=== PATIENT | male | born 1930 | race Caucasian/White ===

== ENCOUNTER → 2016-08-02 | Outpatient (CLI) | payer MEDICARE, BC ==
[~2016-08-02] MED LIST: ASPI325T PO; CITA10TA7 PO; DONE10TA30 PO; DUTA0.5C2 PO; FLUD0.1T PO; IBUP-1724 PO; LORA0.5T2 PO; MELA5TAB14 PO; MEMA10TA21 PO; POLY15DR57 BOTH EYES; POTA-81 PO; TAMS0.4C47 PO; TRAM50TA4 PO; [UNRECOGNIZED DRUG - CODE] PO; [UNRECOGNIZED DRUG - CODE] TOP
[2016-08-02 07:24] LABS: ALBUMIN 4.1 G/DL (3.5-5.0); ALBUMIN/GLOBULIN RATIO 1.3 RATIO (1.1-2.2); ALKALINE PHOSPHATASE 91 U/L (38-126); ALT (SGPT) 32 U/L (21-72); AST (SGOT) 59 U/L (17-59); TOTAL PROTEIN 7.3 G/DL (6.3-8.2)
[2016-08-03 00:41] LABS: LDL CHOLESTEROL,CALCULATED 116.8 (66-159); RISK FACTOR 3.9 RATIO (0-5.0); VLDL CHOLESTEROL 25.2 MG/DL (0-28)
== END ==
LOC: LABNH.AP 02:22
PROVIDERS: ATTEND Family Medicine
DX: E78.00 Pure hypercholesterolemia, unspecified (principal); Z79.899 Other long term (current) drug therapy
CPT/HCPCS: 36415; 80061; 80076; P9604

== ENCOUNTER 2016-09-28 23:12 | Emergency (ER) | payer MEDICARE, BC ==
[~2016-09-28] VITALS: Ht 177.8 cm; Wt 83.0 kg
[2016-09-28 23:12] VITALS: Ht 177.8 cm; Wt 83.0 kg
--- OUTSIDE RECORDS SUMMARY | 2016-09-28 23:18 | XMS REPORT | Continuity of Care Document ---
Author Author [facility] Organization [facility] Address Unknown Phone Unavailable Allergies Active Description Code Type Severity Reaction Onset Reported/Identified Relationship to Patient Clinical Status Yes No Known Medication Allergies NKMA N/A N/A 08/31/2014 Yes iodine iodine Drug Allergy Unknown RASH-UNKNOWN 09/01/2015 Medications Problems Procedures Results Test Result Range METABOLIC PANEL, BASIC - 08/06/15 06:09 POTASSIUM 4.1 mmol/L 3.5-5.3 EST GFR (MDRD) > 60 mL/min > 59 ANION GAP 9 mmol/L 5-15 GLUCOSE 166 mg/dL 70-99 CALCIUM 8.8 mg/dL 8.5-10.1 BLOOD UREA NITROGEN 15 mg/dL 7-20 CREATININE 1.1 mg/dL 0.7-1.3 SODIUM 140 mmol/L 135-148 CHLORIDE 106 mmol/L 98-110 CARBON DIOXIDE 25 mmol/L 21-32 CBC W/DIFF - 08/06/15 06:09 COMMENT REVIEWED GRANULOCYTE # 9.6 k/cumm 2.0-9.0 GRANULOCYTE % 91 % 50-75 LYMPHOCYTE # 0.6 k/cumm 1.0-4.0 LYMPHOCYTE % 5 % 20-30 MEAN CELL HGB 32.0 pg 27.0-33.0 MEAN CELL HGB CONCENTRATION 34.0 g/dL 32.0-37.0 MEAN CELL VOLUME 93.9 fl 80.0-100.0 MONOCYTE # 0.4 k/cumm 0.1-1.0 MONOCYTE % 3 % 4-6 RED BLOOD CELL 4.10 m/cumm 4.00-6.00 RED CELL DISTRIBUTION WIDTH 12.1 % 11.0- 15.6 WHITE BLOOD CELL 10.5 k/cumm 5.0-10.0 HEMOGLOBIN 13.1 gm/dL 14.0-18.0 HEMATOCRIT 38.5 % 40.0-54.0 PLATELET COUNT 206 k/cumm 150-450 CBC - 09/01/15 09:12 MEAN CELL HGB 31.9 pg 27.0-33.0 MEAN CELL HGB CONCENTRATION 33.1 g/dL 32.0-37.0 MEAN CELL VOLUME 96.2 fl 80.0-100.0 RED BLOOD CELL 3.73 m/cumm 4.00-6.00 RED CELL DISTRIBUTION WIDTH 12.5 % 11.0- 15.6 WHITE BLOOD CELL 5.8 k/cumm 5.0-10.0 HEMOGLOBIN 11.9 gm/dL 14.0-18.0 HEMATOCRIT 35.9 % 40.0-54.0 PLATELET COUNT 177 k/cumm 150-450 TROPONIN I - 09/01/15 09:12 TROPONIN I < 0.02 ng/mL < 0.07 METABOLIC PANEL, COMPREHN - 09/01/15 09:12 POTASSIUM 3.6 mmol/L 3.5-5.3 EST GFR (MDRD) > 60 mL/min > 59 ANION GAP 6 mmol/L 5-15 EST CrCl (CG) 55 mL/min > 59 GLUCOSE 98 mg/dL 70-99 CALCIUM 8.2 mg/dL 8.5-10.1 BLOOD UREA NITROGEN 13 mg/dL 7-20 CREATININE 1.1 mg/dL 0.7-1.3 SODIUM 144 mmol/L 135-148 CHLORIDE 109 mmol/L 98-110 AST/SGOT 16 Units/L 10-37 ALT/SGPT 20 Units/L < 66 CARBON DIOXIDE 29 mmol/L 21-32 TOTAL PROTEIN 5.7 gm/dL 6.4-8.2 ALBUMIN 2.9 gm/dL 3.4-5.0 BILI TOTAL 0.4 mg/dL 0.0-1.0 ALKALINE PHOSPHATASE TOTAL 75 IU/L 45- 117 Encounters ACCT No. Visit Date/Time Discharge Status Pt. Type Provider Facility Loc./Unit Complaint [id number] 04/26/2016 10:32:00 2015 23:59:00 DIS Outpatient Yu Benites [facility] ER ON 04.23.16 FOR FALL HIT BACK OF HEAD AN [id number] 03/22/2016 09:07:00 2015 23:59:00 DIS Outpatient Yu Benites [facility] MED CHECK [id number] 01/21/2016 14:56:00 2015 23:59:00 DIS Outpatient Oskar Vo [facility] med check [id number] 07/08/2015 14:02:00 2015 23:59:00 DIS Outpatient Oskar Vo [facility] med ck [id number] 12/18/2014 08:57:00 2014 23:59:00 DIS Outpatient Oskar Vo [facility] ER LUIS CHEST PAIN AND ELEVATED PULSE
--- OUTSIDE RECORDS SUMMARY | 2016-09-28 23:18 | XMS REPORT | Referral Summary ---
Author Author [facility] Organization [facility] Address Unknown Phone Unavailable Care Team Providers Care Deputy Clerk Of Court Name Role Phone Guera Vo Primary Care Physician [phone] Encounter Date(s): 03/22/16 - 03/22/16 [facility] [address] [place] [id number] Discharge Diagnosis: Dementia in other diseases classified elsewhere without behavioral disturbance Discharge Diagnosis: Benign prostatic hypertrophy Discharge Diagnosis: H/O supraventricular tachycardia Discharge Diagnosis: Hypokalemia 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 Discharge Diagnosis: Actinic keratosis Discharge Diagnosis: Seborrheic keratosis Discharge Disposition: 01-Home or Self Care Attending Physician: Yu Benites APRN Admitting Physician: Yu Benites APRN Vital Signs Most recent to 1 oldest [Reference Range]: Temperature Tympanic 36.9 degC [36.6-38.1 degC] (03/22/16 9:15 AM) Peripheral Pulse 68 bpm Rate [60-100 bpm] (03/22/16 9:15 AM) Blood Pressure 126/82 mmHg [90-140/60-90 mmHg] (03/22/16 9:15 AM) Problem List Condition Effective Dates Status Health Status Informant 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(Confirme d) H/O supraventricular Active tachycardia(Confirme d) Benign prostatic Active hypertrophy(Confirme d) 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) Allergies, Adverse Reactions, Alerts No Known Medication Allergies Medications Artificial Tears Eye-Both, 0 Refill(s) Start Date: 03/22/16 Status: Ordered aspirin 81 mg oral tablet 1 tabs, Oral, Daily, 0 Refill(s) Start Date: 11/12/13 Status: Ordered Ativan 0.5 mg oral tablet 0.5 mg 1 tabs, Oral, q8hr, julian, # 90 tabs, 2 Refill(s) Start Date: 08/10/15 Stop Date: 08/18/16 Status: Ordered Avodart 0.5 mg oral capsule 1 caps, Oral, Daily, 0 Refill(s) Start Date: 11/12/13 Status: Ordered citalopram 10 mg, Oral, Daily, 0 Refill(s) Start Date: 12/18/14 Status: Ordered donepezil 10 mg oral tablet 10 mg 1 tabs, Oral, Bedtime (once a day), 0 Refill(s) Start Date: 08/10/15 Status: Ordered Flomax 0.4 mg oral capsule 1 caps, Oral, Daily, 0 Refill(s) Start Date: 11/12/13 Status: Ordered fludrocortisone 0.1 mg oral tablet 0.1 mg, Oral, Daily, recommended by Dr Hart, # 30 tabs, 2 Refill(s), Pharmacy : [facility], 0.1 mg Oral Daily,Instr:recommended by Dr Hart Start Date: 12/14/15 Stop Date: 12/13/16 Status: Ordered LORazepam 0.5 mg oral tablet 0.5 mg 1 tabs, Oral, Bedtime (once a day), [facility], # 30 tabs, 0 Refill (s) Start Date: 08/10/15 Stop Date: 08/18/16 Status: Ordered melatonin 5 mg oral tablet 5 mg 1 tabs, Oral, Bedtime (once a day), as needed for insomnia, # 60 tabs, 0 Refill(s) Start Date: 03/22/16 Status: Ordered memantine 10 mg oral tablet 10 mg 1 tabs, Oral, BID, 0 Refill(s) Start Date: 08/10/15 Status: Ordered menthol topical stick 1 [place], Topical, QID, 0 Refill(s) Start Date: 08/10/15 Status: Ordered Mucinex D 60 mg-600 mg oral tablet, extended release 1 tabs, Oral, BID, julian ph, # 60 tabs, 0 Refill(s) Start Date: 03/07/16 Stop Date: 03/07/17 Status: Ordered potassium chloride 20 mEq oral tablet, extended release 20 mEq 1 tabs, Oral, BID, # 180 tabs, 0 Refill(s) Start Date: 01/21/16 Status: Ordered traMADol 50 mg oral tablet 50 mg 1 tabs, Oral, BID, julian ., # 60 tabs, 0 Refill(s) Start Date: 01/11/16 Status: Ordered Ultram 50 mg oral tablet 50 mg 1 tabs, Oral, q6hr, as needed for pain, FA TO [facility] [phone]., # 90 tabs, 0 Refill(s) Start Date: 08/13/15 Status: Ordered Results No data available for this section Immunizations Vaccine Date Refusal Reason influenza virus vaccine, inactivated1 03/06/16 influenza virus vaccine, inactivated 02/26/15 1Result Comment: [03/07/2016] shari maxwell Procedures Procedure Date Related Diagnosis Body Site Destruction (eg, laser surgery, 03/22/16 electrosurgery, cryosurgery, chemosurgery, surgical curettement), premalignant lesions (eg, actinic keratoses); first lesion Destruction (eg, laser surgery, 03/22/16 electrosurgery, cryosurgery, chemosurgery, surgical curettement), premalignant lesions (eg, actinic keratoses); second through 14 lesions, each (List separately in addition to code for first lesion) Hernia repair Vasectomy Social History Social History Type Response Smoking Status Former smoker; Type: Cigarettes; Number of years: 44 Assessment and Plan Extracted from: Title: Office Visit Note-med Author: Yu Benites APRN Date: 03/22/16 check/insomnia Assessment/Plan 1.Dementia in other diseases classified elsewhere without behavioral disturbance Continue same medications. Stable. Receiving appropriate assistance with cares. 2.Benign prostatic hypertrophy Relatively well controlled without obstruction issues. Continue Flomax and Avodart. 3.Insomnia due to medical condition We discussed patient's current sleep pattern anduse of lorazepam. As patient is having no adverse effects from the lorazepamor Celexarecommend continuing these. Adding melatonin5 mg at at bedtime to see if that will improve his overall sleep quality at night. Encouraged less sleepingduring the day. Considered adding medication to help withnocturiabut at this time they're not interested in that. Only getting up once a night to urinate. Encourage family to call and give us an update on how he is doingsleep in a few weeks. 4.H/O supraventricular tachycardia With bradycardia and pacemaker placement. Follow-up with Dr. Hart as recommended. 5.Hypokalemia On replacement. Plan to check chemistry andCBCfor history of mild anemia at office visit in 2 months. 6.Actinic keratosis Pathophysiology of actinic keratosis and seborrheic keratosisreviewed. Discussed cryotherapy as a treatment option. Patient / wifeagreeable. Verbal consent is obtained. Risk and benefits reviewed. Cryotherapy utilized in 3 freeze thaw cycles to4 lesions. Post-cryotherapy care discussed. Call with any problems. 7.Seborrheic keratosis As above. Plan follow-up in 2 months or sooner if medical needs arise.
--- OUTSIDE RECORDS SUMMARY | 2016-09-28 23:18 | XMS REPORT | Continuity of Care Document ---
Author Author [facility] Address Unknown Phone Unavailable Support Name Relationship Address Phone NANCIE GAINES MD Caregiver [address] [place] [address] Unavailable NANCIE GAINES MD Caregiver [address] [place] [address] Unavailable SANDEE SCHNEIDER MD Caregiver [address] [place] [address] Unavailable SILVESTRE THOMAS MD Caregiver [address] [place] [address] Unavailable ASIA HARDY Next Of Kin [address] [place] [address] Insurance Providers Guarantor Rinku Hardy Address [address] [place] [address] AP Email DENIED 16 Payer [facility] Policy Number [id number] Subscriber's Name AntonyRinku Lagos Relationship 18 Self Group Number [id number] Payer Medicare Policy Number [id number] Subscriber's Name Rinku Hardy Relationship 18 Self Advance Directives Directive Response Recorded Date/Time Advanced Directives Type DNR Documentation 06/15/16 8:41am Ordered Resuscitation Status Do Not Resuscitate 06/15/16 10:44am Resuscitation Documents on File Yes 06/15/16 11:12am DPOA for Healthcare Only Roselia jung 06/15/16 11:12am Living Will Yes 06/15/16 11:12am Problems Active Problems Medical Problem Onset Date Status Alzheimer's dementia Unknown Chronic Anxiety Unknown Chronic Atrial flutter Unknown Chronic BPH (benign prostatic hypertrophy) Unknown Chronic COPD (chronic obstructive pulmonary disease) Unknown Chronic Chest pain Unknown Resolved Degenerative joint disease Unknown Chronic Dysarthria Unknown Acute Dyslipidemia Unknown Chronic Encephalopathy Unknown HTN (hypertension) Unknown Chronic History of paroxysmal supraventricular tachycardia Unknown Resolved Hypokalemia Unknown Acute Hypotension Unknown Resolved Lung cancer Unknown Pacemaker Unknown Chronic Right lower quadrant abdominal pain Unknown Acute Right lower quadrant abdominal pain Unknown Acute SVT (supraventricular tachycardia) Unknown Acute Sepsis Unknown Acute Severe sepsis Unknown Resolved Tachy-lio syndrome Unknown Acute Vasovagal episode Unknown Acute Past Problems Medical Problem Onset Date Mental status change Unknown Medications Current Home Medications Medication Dose Units Route Directions Days Qty Instructions Start Date Aspirin 325 Mg Tablet 325 Mg Oral Daily for Cva 30 Tablet 06/16/16 Citalopram Hydrobromide (Citalopram Hbr) 10 Mg Tablet 10 Mg Oral Daily 12/09/14 Donepezil Hcl 10 Mg Tablet 10 Mg Oral Bedtime 09/14/15 Dutasteride (Avodart) 0.5 Mg Capsule 0.5 Mg Oral Daily 12/09/14 Fludrocortisone Acetate 0.1 Mg Tablet 0.1 Mg Oral Bedtime Guaifenesin/P-Ephed Hcl (Mucinex D Er 600-60 Mg Tablet) 1 Tab Tablet 1 Tab Oral Every 12 Hours as needed for Cold Symptoms 06/15/16 Ibuprofen 200 Mg Tablet 200 Mg Oral Twice A Day 06/15/16 Lorazepam 0.5 Mg Tablet 0.5 Mg Oral Every 8 Hours as needed for Anxiety 08/04/15 Lorazepam 0.5 Mg Tablet 0.5 Mg Oral Bedtime 09/14/15 Melatonin 5 Mg Tablet 5 Mg Oral Bedtime 06/15/16 Memantine Hcl 10 Mg Tablet 10 Mg Oral Twice A Day 08/04/15 Menthol 227 Gm Gel..gram. 1 Applic Topically Daily 06/15/16 Menthol 227 Gm Gel..gram. 1 Applic Topically Three Times A Day as needed for Pain 06/15/16 Polyvinyl Alcohol (Artificial Tears) 15 Ml Drops 1 Drop Both Eyes As Needed as needed for Dry Eyes 06/15/16 Potassium Chloride 20 Meq Tablet.er 20 Meq Oral Twice Daily With Meals 05/04/16 Tamsulosin Hcl 0.4 Mg Cap.er.24h 0.4 Mg Oral Bedtime 12/09/14 Tramadol Hcl 50 Mg Tablet 50 Mg Oral Twice A Day 08/04/15 Tramadol Hcl 50 Mg Tablet 50 Mg Oral Every 6 Hours as needed for Pain 08/04/15 Past Home Medications Medication Directions Ordered Status Aspirin (Aspirin Ec) 81 Mg Tablet.dr, 81 Mg Oral Daily 09/14/15 Discontinued Donepezil Hcl 10 Mg Tablet, 10 Mg Oral Daily 08/04/15 Discontinued Metoprolol Succinate 25 Mg Tab.er.24h, 25 Mg Oral Daily 08/04/15 Discontinued Social History Social History Problem Response Recorded Date/Time Onset Date Status Reason for Hospitalization dysarthria 06/16/2016 1:51pm Not Applicable Not Applicable Has the pt used tobacco in the last 12 months No 06/15/2016 11:17am Not Applicable Not Applicable Tobacco Usage none 08/04/2015 1:42pm Not Applicable Not Applicable Query Response Start Date Stop Date Smoking Status Never smoker Hospital Discharge Instructions Instructions: Care Instructions: I was in the hospital because (patient own words): "I HAD A STROKE" Discharge Diet: ground meats with nectar thickened liquids Discharge Activity: Ambulate with assistance only, front wheeled walker recommended Follow Up Appointments: Dr. Thomas 1 week Pending Lab / Results: No Pending Lab Patient Instructions: Increase aspirin from baby aspirin to full strength aspirin 1 daily Expected Signs/Symptoms: Increased confusion from baseline, anticipate gradual improvement as he acclimates to new environment. Stumbling over words. Notify Physician If: Obvious weakness in 1 arm or leg, choking or vomiting During Business Hours:: Please call the physician's office at After Business Hours:: Please call [phone] and have the welding machine operator electroslag page the physician. Pain Management/Treatment: See medication list Wound/Incision Care: Not applicable Durable Medical Equipment: Walker recommended Condition at time of discharge: Fair Plan of Care Discharge Date 06/16/16 4:09pm Disposition 04 TO [facility] Instructions/Education Provided Hypokalemia (ED) Prescriptions See Medication Section Care Plan and Goals See Discharge Instructions Section Functional Status Query Response Date Recorded Mobility Status Ambulatory w/assist June 15, 2016 11:21am Assistive Devices None June 15, 2016 11:21am Activity Limitations Weakness Cough June 15, 2016 11:21am Feeding Ability Assist June 15, 2016 11:21am Toileting Ability Assist June 15, 2016 11:21am Grooming Ability Assist June 15, 2016 11:21am Dressing Ability Assist June 15, 2016 11:21am Driving Ability Dependent June 15, 2016 11:21am Housework Ability Dependent June 15, 2016 11:21am Meal Preparation Ability Dependent June 15, 2016 11:21am Stair Climbing Ability Dependent June 15, 2016 11:21am Ability to complete ADL's impeded by Impaired Mobility Change in Cognition June 15, 2016 11:21am Cognitive/Perceptual Impairments Impaired vision Impaired hearing June 15, 2016 11:21am Visual Assistive Devices Glasses With patient June 15, 2016 11:21am Allergies, Adverse Reactions, Alerts Allergen Type Severity Reaction Status Last Updated iodine Allergy Unknown Active 06/15/16 Immunizations Immunization Event Date Type Not Given Reason Dose Number Lot Number Floor Hand VIS Given Pneumococcal conjugate PCV 13 06/15/16 Administered 1 [id number] Pfizer Query Response on File Recorded Date/Time Hx Influenza Vaccination Y FEB 2016 06/15/16 11:17am Hx Pneumococcal Vaccination Y feb 2015 06/15/16 11:17am Hx Influenza Vaccination Y FEB 2016 06/15/16 11:17am Influenza Vaccine Hx 03/06/2016 06/15/16 3:11pm Vital Signs Acute Vital Signs Vital Response Date/Time Temperature (Fahrenheit) 96.2 deg F (96.8 - 99.1) 06/16/2016 8:15am Temperature (Calculated Celsius) 35.83852 degrees C (36.0 - 37.3) 06/16/2016 8:15am Temperature Source Oral 05/04/2016 12:15pm Pulse Rate (adult) 70 bpm (60 - 100) 06/16/2016 2:43pm Respiratory Rate 18 breaths/min (10 - 20) 06/16/2016 2:43pm O2 Sat by Pulse Oximetry 96 % (90 - 100) 06/16/2016 2:43pm Oxygen Delivery Method Room Air 05/04/2016 3:15pm Oxygen Delivery Method Room Air 06/16/2016 2:43pm Blood Pressure 166/83 mm Hg 06/16/2016 2:43pm Blood Pressure Source Automatic Cuff 06/16/2016 2:43pm Height (Feet) 6 feet 06/15/2016 11:11am Height (Inches) 1.00 inches 06/15/2016 11:11am Weight (Kilograms) 77.400 kg 06/15/2016 11:11am Body Mass Index (BMI) 22.5 06/15/2016 11:11am Results Laboratory Results Test Name Result Units Flags Reference Collection Date/Time Result Date/ Time Comments White Blood Count 6.8 T/MM3 4.5-11.0 06/15/2016 9:06am 06/15/2016 9: 11am Red Blood Count 4.34 M/MM3 L 4.50-5.90 06/15/2016 9:06am 06/15/2016 9: 11am Hemoglobin 13.5 GM/DL 13.5-17.5 06/15/2016 9:06/15/2016 9:11am Hematocrit 40.3 % L 41-53 06/15/2016 9:06/15/2016 9:11am Mean Corpuscular Volume 92.9 UM3 80-100 06/15/2016 9:06/15/2016 9: 11am Mean Corpuscular Hemoglobin 31.1 UUG 26-34 06/15/2016 9:2016 9:11am Mean Corpuscular Hemoglobin Concent 33.5 GM/DL 31-37 06/15/2016 9:06/15/2016 9:11am RDW Standard Deviation 43.5 FL 36.9-50.2 06/15/2016 9:06/15/2016 9 :11am Platelet Count 186 T/MM3 130-400 06/15/2016 9:06/15/2016 9:11am Mean Platelet Volume 9.1 UM3 L 9.4-12.4 06/15/2016 9:06/15/2016 9: 11am Neutrophils (%) (Auto) 74.6 % H 33-66 06/15/2016 9:06/15/2016 9: 11am Lymphocytes (%) (Auto) 12.8 % L 23-45 06/15/2016 9:06/15/2016 9: 11am Monocytes (%) (Auto) 7.1 % 0-9.0 06/15/2016 9:06/15/2016 9:11am Eosinophils (%) (Auto) 4.4 % H 0-4 06/15/2016 9:06/15/2016 9:11am Basophils (%) (Auto) 1.0 % 0-2 06/15/2016 9:06/15/2016 9:11am Immature Granulocyte % (Auto) 0.1 % 0.0-0.5 06/15/2016 9:2016 9:11am Absolute Neutrophils (auto) 5.1 T/MM3 1.8-7.7 06/15/2016 9:2016 9:11am Absolute Lymphocytes (auto) 0.9 T/MM3 L 1-4.8 06/15/2016 9:062016 9:11am Absolute Monocytes (auto) 0.5 T/MM3 0-0.8 06/15/2016 9:06/15/2016 9:11am Absolute Eosinophils (auto) 0.3 T/MM3 0-0.5 06/15/2016 9:062016 9:11am Absolute Basophils (auto) 0.1 T/MM3 0-0.2 06/15/2016 9:06/15/2016 9:11am Absolute Immature Granulocyte (auto 0.01 T/MM3 0.00-0.03 06/15/2016 9: 06/15/2016 9:11am Prothromb Time International Ratio 1.15 H 0.76-1.04 06/15/2016 9:06/15/2016 9:18am THERAPUTIC RANGE=2.00-3.00 FOR ANTI-THROMBOSIS THERAPUTIC RANGE=2.50-3.50 FOR IMPLANTED VALVE Activated Partial Thromboplast Time 35.0 SEC 24-36 06/15/2016 9: 9:18am Icterus Index < 2 0-7 06/15/2016 9:06/15/2016 9:20am Chemistry Specimen Hemolysis < 15 0-25 06/15/2016 9:06/15/2016 9 :20am 0-25: Specimen Exhibited No Hemolysis. Turbidity < 20 0-20 06/15/2016 9:06/15/2016 9:20am Sodium Level 142 MEQ/L 134-144 06/15/2016 9:06/15/2016 9:20am Potassium Level 3.3 MEQ/L L 3.6-5 06/15/2016 9:0606/15/2016 9:20am Chloride Level 104 MEQ/L 98-107 06/15/2016 9:0606/15/2016 9:20am Carbon Dioxide Level 29 MEQ/L 22-30 06/15/2016 9:0606/15/2016 9: 20am Anion Gap 9 MEQ/L 5-15 06/15/2016 9:0606/15/2016 9:20am Blood Urea Nitrogen 15.0 MG/DL 9-06/15/2016 9:06/15/2016 9: 20am Creatinine 0.9 MG/DL 0.8-1.5 06/15/2016 9:06/15/2016 9:20am BUN/Creatinine Ratio 17 RATIO 6-26 06/15/2016 9:06/15/2016 9:20am Glomerular Filtration Rate Calc 80 06/15/2016 9:06/15/2016 9: 20am Glucose Level 115 MG/DL H 75-110 06/15/2016 9:06/15/2016 9:20am Calculated Osmolality 275 MOSM/KG 261-280 06/15/2016 9:06/15/2016 9:20am Calcium Level 9.1 MG/DL 8.4-10.2 06/15/2016 9:06/15/2016 9:20am Total Bilirubin 0.70 MG/DL 0.20-1.30 06/15/2016 9:06/15/2016 9: 20am Alkaline Phosphatase 78 U/L 38-126 06/15/2016 9:06/15/2016 9:20am Total Protein 6.7 G/DL 6.3-8.2 06/15/2016 9:06/15/2016 9:20am Albumin 3.8 G/DL 3.5-5.0 06/15/2016 9:06/15/2016 9:20am Globulin 2.9 G/DL 2.4-3.6 06/15/2016 9:06/15/2016 9:20am Albumin/Globulin Ratio 1.3 RATIO 1.1-2.2 06/15/2016 9:06/15/2016 9 :20am Aspartate Amino Transf (AST/SGOT) 25 U/L 17-59 06/15/2016 9:2016 9:20am Alanine Aminotransferase (ALT/SGPT) 24 U/L 21-72 06/15/2016 9: 9:20am Troponin I < 0.012 ng/ml 0-0.12 06/15/2016 9:06/15/2016 9:32am Troponin values with a difference of 55% increase from orginal troponin value represent a true biological DELTA value. (%increase Calc=Orginal Troponin value, divided by subsequent Troponin value, multiplied by 100) Urine Collection Type VOIDED-NOT CC-MIDSTR 06/15/2016 10:48am 06/15 10:59am Urine Color YELLOW YELLOW 06/15/2016 10:48am 06/15/2016 10:59am Urine Turbidity CLEAR CLEAR 06/15/2016 10:48am 06/15/2016 10:59am Urine Specific [place] 1.020 1.015-1.025 06/15/2016 10:48am 2016 10:59am Urine pH 6.0 5.0-8.0 06/15/2016 10:48am 06/15/2016 10:59am Urine Leukocyte Esterase NEGATIVE NEGATIVE 06/15/2016 10:48am 2016 10:59am Urine Nitrite NEGATIVE NEGATIVE 06/15/2016 10:48am 06/15/2016 10: 59am Urine Protein NEGATIVE NEGATIVE 06/15/2016 10:48am 06/15/2016 10: 59am Urine Glucose (UA) NEGATIVE NEGATIVE 06/15/2016 10:48am 06/15/2016 10 :59am Urine Ketones NEGATIVE NEGATIVE 06/15/2016 10:48am 06/15/2016 10: 59am Urine Urobilinogen 0.2 EU/DL NORMAL 06/15/2016 10:48am 06/15/2016 10: 59am Urine Bilirubin NEGATIVE NEGATIVE 06/15/2016 10:48am 06/15/2016 10: 59am Urine Blood NEGATIVE NEGATIVE 06/15/2016 10:48am 06/15/2016 10:59am Urinalysis Comment MICROSCOPIC NOT IND. 06/15/2016 10:48am 2016 10:59am Glucometer 137 mg/dL H 75-110 06/15/2016 8:52am 06/15/2016 10:11am Name: RINKU HARDY Unit #: [id number] : 1930 Sex: M DISCHARGE SUMMARY Admit Date: 06/15/16 Report #: [id number] [facility] General Date Date DATE: 06/16/16 TIME: 15:07 Attending Physician Nancie Gaines MD Admitting Physician Nancie Gaines MD Consulting Physician Stacie Salazar Admitting Diagnosis ms changes, hypokalemia Discharge Diagnosis 1. Probable ischemic stroke 2. Dysarthria/dysphasia 3. Encephalopathy 4. Dementia 5. Hypokalemia 6. Dyslipidemia 7. Right lower lobe lung cancer 8. History SVT Laboratory Laboratory Tests Test 06/15/16 08:52 06/15/16 09:06 06/15/16 10:48 Glucometer 137mg/dL (75-110) White Blood Count 6.8T/MM3 (4.5-11.0) Red Blood Count 4.34M/MM3 (4.50-5.90) Hemoglobin 13.5GM/DL (13.5-17.5) Hematocrit 40.3% (41-53) Mean Corpuscular Volume 92.9UM3 (80-100) Mean Corpuscular Hemoglobin 31.1UUG (26-34) Mean Corpuscular Hemoglobin Concent 33.5GM/DL (31-37) RDW Standard Deviation 43.5FL (36.9-50.2) Platelet Count 186T/MM3 (130-400) Mean Platelet Volume 9.1UM3 (9.4-12.4) Immature Granulocyte % (Auto) 0.1% (0.0-0.5) Neutrophils (%) (Auto) 74.6% (33-66) Lymphocytes (%) (Auto) 12.8% (23-45) Monocytes (%) (Auto) 7.1% (0-9.0) Eosinophils (%) (Auto) 4.4% (0-4) Basophils (%) (Auto) 1.0% (0-2) Absolute Immature Granulocyte (auto 0.01T/MM3 (0.00-0.03) Absolute Neutrophils (auto) 5.1T/MM3 (1.8-7.7) Absolute Lymphocytes (auto) 0.9T/MM3 (1-4.8) Absolute Monocytes (auto) 0.5T/MM3 (0-0.8) Absolute Eosinophils (auto) 0.3T/MM3 (0-0.5) Absolute Basophils (auto) 0.1T/MM3 (0-0.2) Prothromb Time International Ratio 1.15 (0.76-1.04) Activated Partial Thromboplast Time 35.0SEC (24-36) Turbidity < 20 (0-20) Sodium Level 142MEQ/L (134-144) Potassium Level 3.3MEQ/L (3.6-5) Chloride Level 104MEQ/L (98-107) Carbon Dioxide Level 29MEQ/L (22-30) Anion Gap 9MEQ/L (5-15) Blood Urea Nitrogen 15.0MG/DL (9-20) Creatinine 0.9MG/DL (0.8-1.5) Glomerular Filtration Rate Calc 80 BUN/Creatinine Ratio 17RATIO (6-26) Glucose Level 115MG/DL (75-110) Calculated Osmolality 275MOSM/KG (261-280) Calcium Level 9.1MG/DL (8.4-10.2) Total Bilirubin 0.70MG/DL (0.20-1.30) Icterus Index < 2 (0-7) Aspartate Amino Transf (AST/SGOT) 25U/L (17-59) Alanine Aminotransferase (ALT/SGPT) 24U/L (21-72) Alkaline Phosphatase 78U/L (38-126) Troponin I < 0.012ng/ml (0-0.12) Total Protein 6.7G/DL (6.3-8.2) Albumin 3.8G/DL (3.5-5.0) Globulin 2.9G/DL (2.4-3.6) Albumin/Globulin Ratio 1.3RATIO (1.1-2.2) Chemistry Specimen Hemolysis < 15 (0-25) Urine Collection Type Voided-not cc-midstr Urine Color Yellow (YELLOW) Urine Turbidity Clear (CLEAR) Urine pH 6.0 (5.0-8.0) Urine Specific [place] 1.020 (1.015-1.025) Urine Protein Negative (NEGATIVE) Urine Glucose (UA) Negative (NEGATIVE) Urine Ketones Negative (NEGATIVE) Urine Blood Negative (NEGATIVE) Urine Nitrite Negative (NEGATIVE) Urine Bilirubin Negative (NEGATIVE) Urine Urobilinogen 0.2EU/DL (NORMAL) Urine Leukocyte Esterase Negative (NEGATIVE) Urinalysis Comment Microscopic not ind. Radiology Noncontrast CT of the head on admission revealed generalized atrophy and chronic microvascular ischemic changes without acute pathology. History of Present Illness Patient is an 85-year-old male who resides [facility]. It was reported by staff that last evening approximately 8 PM he was complaining of having a headache and some slurred speech. Patient went to bed and slept all night. This morning he was found to have difficulty walking/right- sided weakness as well as continued dysarthria. EMS was then contacted and patient was brought to the emergency room for further evaluation and treatment. Basic lab studies and a stat CT scan of the head were obtained. WBC count 6.8, hemoglobin 13.5, hematocrit 30.3, platelet count 186. Sodium is 142, potassium 3.3, BUN 15, creatinine 0.9, glucose 115. A urinalysis was obtained that was unremarkable. Troponin was undetectable less than 0.012, INR 1.15. Initial vital signs were reviewed patient was hypertensive with a blood pressure of 181/82, pulse 61, temperature 97.3 with normal saturations 98%. An acute CT scan of the head was obtained and was negative for acute intracranial abnormality or hemorrhage. Patient continued to show some dysarthria with possible facial droop dust the hospital service contacted and accepted patient for outpatient admission for further evaluation and treatment. She was seen initially on initial examination with at the bedside. He is alert however is disoriented. This is not uncommon given his history of dementia. He is adamant that his date is June. He will not understand that there are not 32 days in the month of June. In depth discussion had with patient's regarding further workup for acute CVA. Patient states that further workup including carotid Doppler and MRI of the brain would not change his treatment plan she would like to forego further medical testing and work towards therapy and strengthening. She did verbalize the patient is a DO NOT RESUSCITATE. Hospital Course Mr. Hardy was observed overnight on the hospitalist services under the care of Dr Gaines for dysarthria, right-sided weakness described at [place] prior to hospitalization, and increased confusion. Constellation of symptoms and examination were felt compatible with acute ischemic stroke likely in the left MCA distribution. In depth discussion with regarding further evaluation including carotid Doppler, echo, and MRI of the brain. declined these further testing. Speech therapy evaluated and recommended ground meats and nectar thickened liquids. Patient was noted to try to eat rapidly with large bites increasing risk of aspiration. Supervised meals recommended initially. Physical therapy also evaluated and felt gait was unstable. Front wheeled walker improved stability although the patient had some difficulty understanding use of the walker and will require ongoing supervision. Aspirin dose was increased from 81 mg daily to 325 mg daily. Potassium was slightly low on admission, this was supplemented orally and reassessment of level in approximately 1 week recommended. On 06/16 the patient was alert but continued to have some word searching and increased confusion from baseline. He vomited a small amount in the morning after taking multiple pills with minimal liquid but tolerated his noon meal without difficulty. He was pleasantly confused but lungs were clear and he was moving upper and lower extremities symmetrically without focal deficit. Breath sounds are clear and cardiac rhythm regular. Arrangements had previously been made to transfer patient from assisted living to long-term care at [place] in the memory unit. He's felt stable for discharge at this time with follow-up with Dr. Thomas regarding chronic medical problems and Dr. Bridges for reassessment of the recently diagnosed lung cancer which is being managed expectantly. Supervision of meals as recommended and continued speech therapy and physical therapy. Discharge plans were reviewed with the patient's in detail. >30 minutes spent on patient care and discharge care coordination today on the date of discharge. -- Problems: (1) Dysarthria Status: Acute (2) Encephalopathy (3) Hypokalemia Status: Acute Assessment & Plan: Present on admission (4) Lung cancer Assessment & Plan: Recent diagnosis (5) COPD (chronic obstructive pulmonary disease) Status: Chronic (6) BPH (benign prostatic hypertrophy) Status: Chronic (7) HTN (hypertension) Status: Chronic (8) Dyslipidemia Status: Chronic (9) Alzheimer's dementia Status: Chronic (10) Pacemaker Status: Chronic (11) Anxiety Status: Chronic (12) Degenerative joint disease Status: Chronic (13) History of paroxysmal supraventricular tachycardia Status: Resolved Assessment & Plan: Status post AV track ablation Code Status Do Not Resuscitate Home Meds Active Scripts Aspirin (Aspirin) 325 Mg Tablet, 325 MG PO DAILY for CVA, #30 TAB Prov:NANCIE GAINES MD 06/16/16 Reported Medications Guaifenesin/P-Ephed HCl (Mucinex D ER 600-60 mg Tablet) 1 Tab Tablet, 1 TAB PO Q12H Y for COLD SYMPTOMS 06/15/16 Polyvinyl Alcohol (Artificial Tears) 15 Ml Drops, 1 DROP BOTH EYES PRN Y for DRY EYES 06/15/16 Menthol (Menthol) 227 Gm Gel..gram., 1 APPLIC TOP TID Y for PAIN 06/15/16 Menthol (Menthol) 227 Gm Gel..gram., 1 APPLIC TOP DAILY 06/15/16 Melatonin (Melatonin) 5 Mg Tablet, 5 MG PO HS 06/15/16 Ibuprofen (Ibuprofen) 200 Mg Tablet, 200 MG PO BID 06/15/16 Fludrocortisone Acetate (Fludrocortisone Acetate) 0.1 Mg Tablet, 0.1 MG PO HS 06/15/16 Potassium Chloride (Potassium Chloride) 20 Meq Tablet.er, 20 MEQ PO BIDWM 05/04/16 Lorazepam (Lorazepam) 0.5 Mg Tablet, 0.5 MG PO HS 09/14/15 Donepezil HCl (Donepezil HCl) 10 Mg Tablet, 10 MG PO HS 09/14/15 Lorazepam (Lorazepam) 0.5 Mg Tablet, 0.5 MG PO Q8H Y for ANXIETY 08/04/15 Tramadol HCl (Tramadol HCl) 50 Mg Tablet, 50 MG PO Q6H Y for PAIN 08/04/15 Tramadol HCl (Tramadol HCl) 50 Mg Tablet, 50 MG PO BID 08/04/15 Memantine HCl (Memantine HCl) 10 Mg Tablet, 10 MG PO BID 08/04/15 Citalopram Hydrobromide (Citalopram HBr) 10 Mg Tablet, 10 MG PO DAILY 12/09/14 Tamsulosin HCl (Tamsulosin HCl) 0.4 Mg Cap.er.24h, 0.4 MG PO HS 12/09/14 Dutasteride (Avodart) 0.5 Mg Capsule, 0.5 MG PO DAILY 12/09/14 Discontinued Reported Medications Aspirin *EC* (Aspirin EC) 81 Mg Tablet.dr, 81 MG PO DAILY 09/14/15 Face to Face Encounter I met with patient on the day of dismissal and discussed follow up appointments , medications, and safety plan. Discharge Disposition [facility] Copies To 1: JANESSA BRIDGES MD; SILVESTRE THOMAS MD Documentation Requirements Alt. Mental Status/Confusion Check if condition above is: Acute (acute superimposed on chronic dementia) NANCIE GAINES MD Jun 16, 2016 15:16 Procedures Procedure Status Date Provider(s) Ct thorax w/o dye Completed 05/02/16 Ct abd & pelvis w/o contrast Completed 05/02/16 Routine venipuncture Completed 04/27/16 Comprehen metabolic panel Completed 04/27/16 Complete cbc w/auto diff wbc Completed 04/27/16 Percut bx lung/mediastinum Completed 05/04/16 LOGAN LARA MD Routine venipuncture Completed 05/04/16 Chest x-ray 1 view frontal Completed 05/04/16 Chest x-ray 1 view frontal Completed 05/04/16 Chest x-ray 1 view frontal Completed 05/04/16 Ct scan for needle biopsy Completed 05/04/16 Automated platelet count Completed 05/04/16 Prothrombin time Completed 05/04/16 Tissue exam by pathologist Completed 05/04/16 Immunohisto antb addl slide Completed 05/04/16 Immunohisto antb 1st stain Completed 05/04/16 [id number]"RINGERS LACTATE INFUSION, UP TO 1000 CC" Completed 05/04/16 Pet image w/ct skull-thigh Completed 05/24/16 [id number]"FLUORODEOXYGLUCOSE F-18 FDG, DIAGNOSTIC, PER STUDY DO Completed Encounters Encounter Location Arrival/Admit Date Discharge/Depart Date Attending Provider Discharged Inpatient (obs) [facility] 06/15/16 9:47am 06/16/16 4: 09pm NANCIE GAINES MD Registered [facility] 06/14/16 2:39am SILVESTRE THOMAS MD Registered [facility] 05/24/16 8:56am JANESSA BRIDGES MD Departed [facility] 05/04/16 9:23am 05/04/16 4:00pm LOGAN LARA MD Registered [facility] 05/02/16 7:57am JANESSA BRIDGES MD Registered [facility] 04/27/16 3:29pm JANESSA BRIDGES MD
--- OUTSIDE RECORDS SUMMARY | 2016-09-28 23:18 | XMS REPORT | Referral Summary ---
Author Author [facility] Organization [facility] Address Unknown Phone Unavailable Care Team Providers Care Sales Representative Cash Registers Name Role Phone Guera Vo Primary Care Physician [phone] Encounter VC Date(s): 04/23/16 - 04/23/16 [facility] [address] [place] [address] [phone] Discharge Diagnosis: Back pain Discharge Diagnosis: Hypertension Discharge Diagnosis: Fall Discharge Diagnosis: Chest wall trauma Discharge Diagnosis: Lung nodule Discharge Disposition: 03-Half-Way Facility Attending Physician: Demond Veag MD Admitting Physician: Demond Vega MD Vital Signs Most recent to 1 oldest [Reference Range]: Temperature Oral 36.1 degC [35.8-37.3 degC] (04/23/16 4:39 AM) Peripheral Pulse 60 bpm Rate [60-100 bpm] (04/23/16 4:39 AM) Heart Rate Monitored 60 bpm [60-100 bpm] (04/23/16 7:00 AM) Respiratory Rate 14 br/min [14-20 br/min] (04/23/16 7:00 AM) Blood Pressure 172/96 mmHg [90-140/60-90 mmHg] *HI* (04/23/16 7:00 AM) Mean Arterial 125 mmHg Pressure, Cuff (04/23/16 7:00 AM) SpO2 96 % (04/23/16 7:00 AM) Problem List Condition Effective Dates Status Health Status Informant 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(Confirme d) H/O supraventricular Active tachycardia(Confirme d) Benign prostatic Active hypertrophy(Confirme d) 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) Allergies, Adverse Reactions, Alerts No Known Medication Allergies Medications acetaminophen-codeine 300 mg-30 mg oral tablet 1 tabs, Oral, q6hr, as needed for pain, X 3 days, # 12 tabs, 0 Refill(s) Start Date: 04/23/16 Stop Date: 04/26/16 Status: Ordered Artificial Tears Eye-Both, 0 Refill(s) Start Date: 03/22/16 Status: Ordered aspirin 81 mg oral tablet 1 tabs, Oral, Daily, 0 Refill(s) Start Date: 11/12/13 Status: Ordered Ativan 0.5 mg oral tablet 0.5 mg 1 tabs, Oral, q8hr, julian, # 90 tabs, 2 Refill(s) Start Date: 03/28/16 Stop Date: 04/27/17 Status: Ordered Avodart 0.5 mg oral capsule [...] # 30 tabs, 2 Refill(s), Pharmacy : [facility], 0.1 mg Oral Daily,Instr:recommended by Dr Hart Start Date: 04/10/16 Stop Date: 04/10/17 Status: Ordered LORazepam 0.5 mg oral tablet 0.5 mg 1 tabs, Oral, Bedtime (once a day), [facility], # 30 tabs, 0 Refill (s) [...] tablet, extended release 1 tabs, Oral, BID, [facility], # 60 tabs, 0 Refill(s) Start Date: 03/07/16 Stop Date: 03/07/17 Status: Ordered naproxen 250 mg oral tablet 250 mg 1 tabs, Oral, q8hr, as needed for pain, X 3 days, # 9 tabs, 0 Refill(s) Start Date: 04/23/16 Stop Date: 04/26/16 Status: Ordered potassium chloride 20 mEq oral tablet, extended release 20 mEq 1 tabs, Oral, BID, # 180 tabs, 0 Refill(s) Start Date: 01/21/16 Status: Ordered traMADol 50 mg oral tablet 50 mg 1 tabs, Oral, B[facility], [facility] # 60 tabs, 0 Refill(s) Start Date: 01/11/16 Status: Ordered Ultram 50 mg oral tablet 50 mg 1 tabs, Oral, q6hr, as needed for pain, FAX TO [facility] ., # 90 tabs, 0 Refill(s) Start Date: 03/28/16 Status: Ordered Results No data available for this section Immunizations Vaccine Date Refusal Reason influenza virus vaccine, inactivated1 03/06/16 influenza virus vaccine, inactivated 02/26/15 1Result Comment: [03/07/2016] shari maxwell Procedures Procedure Date Related Diagnosis Body Site Hernia repair Vasectomy Social History Social History Type Response Smoking Status Former smoker; Type: Cigarettes; Number of years: 44 Assessment and Plan No data available for this section
--- OUTSIDE RECORDS SUMMARY | 2016-09-28 23:18 | XMS REPORT | Referral Summary ---
Author Author [facility] Organization [facility] Address Unknown Phone Unavailable Care Team Providers Care Tool Crib Lead Name Role Phone Guera Vo Primary Care Physician [phone] Encounter Date(s): 04/26/16 - 04/26/16 [facility] [address] [place] [address] Discharge Diagnosis: Contusion of right chest wall Discharge Diagnosis: Contusion of right elbow, initial encounter Discharge Diagnosis: Dementia in other diseases classified elsewhere without behavioral disturbance Discharge Diagnosis: Nodule of right lung Discharge Disposition: 01-Home or Self Care Attending Physician: Yu Benites APRN Admitting Physician: Yu Benites APRN Vital Signs Most recent to 1 oldest [Reference Range]: Temperature Tympanic 35.9 degC [36.6-38.1 degC] *LOW* (04/26/16 10:38 AM) Peripheral Pulse 66 bpm Rate [60-100 bpm] (04/26/16 10:38 AM) Blood Pressure 140/84 mmHg [90-140/60-90 mmHg] (04/26/16 10:38 AM) Problem List Condition Effective Dates Status Health Status Informant 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(Confirme d) H/O supraventricular Active tachycardia(Confirme d) Benign prostatic Active hypertrophy(Confirme d) 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) Allergies, Adverse Reactions, Alerts No Known Medication Allergies Medications acetaminophen-codeine #3 1 tabs, Oral, q6hr, as needed for pain, 0 Refill(s) Start Date: 04/26/16 Status: Ordered Artificial Tears Eye-Both, [...] # 30 tabs, 2 Refill(s), Pharmacy : [facility], 0.1 mg Oral Daily,Instr:recommended by Dr Hart Start Date: 04/10/16 Stop Date: 04/10/17 Status: Ordered LORazepam 0.5 mg oral tablet 0.5 mg 1 tabs, Oral, Bedtime (once a day), [facility], # 30 tabs, 0 Refill (s) [...] tabs, Oral, q8hr, as needed for pain, 0 Refill(s) Start Date: 04/26/16 Status: Ordered potassium chloride 20 mEq oral tablet, extended release 20 mEq 1 tabs, Oral, BID, # 180 tabs, 0 Refill(s) Start Date: 01/21/16 Status: Ordered traMADol 50 mg oral tablet 50 mg 1 tabs, Oral, BID, [facility] ., # 60 tabs, 0 Refill(s) Start Date: 01/11/16 Status: Ordered Ultram 50 mg oral tablet 50 mg 1 tabs, Oral, q6hr, as needed for pain, FAX TO [facility] [phone]., # 90 tabs, 0 Refill(s) Start Date: [...] and Plan Extracted from: Title: Office Visit Note-ER Author: Yu Benites PRIMARY SUBSTANCE ABUSE COUNSELOR Date: 04/26/16 f/u/lung mass
--- NOTE | 2016-09-28 23:40 | NUR ---
PROVIDER DR JESSICA IN ROOM TO SEE PT. -DPOA IS HERE IN ROOM ALSO
--- OUTSIDE RECORDS SUMMARY | 2016-09-28 23:51 | XMS REPORT | Continuity of Care Document ---
Author Author [facility] Organization [facility] Address Unknown Phone Unavailable Allergies [...] Status Pt. Type Provider Facility Loc./Unit Complaint [id number] 04/26/2016 10:32:00 2015 23:59:00 DIS Outpatient Yu Benites [facility] ER ON 04.23.16 FOR FALL HIT BACK OF HEAD AN [id number] 03/22/2016 09:07:00 2015 23:59:00 DIS Outpatient Yu Benites [facility] MED CHECK [id number] 01/21/2016 14:56:00 2015 23:59:00 DIS Outpatient Oskar Vo [facility] med check [id number] 07/08/2015 14:02:00 2015 23:59:00 DIS Outpatient Oskar Vo [facility] med ck [id number] 12/18/2014 08:57:00 2014 23:59:00 DIS Outpatient Oskar Vo [facility] ER [facility]IS CHEST PAIN AND ELEVATED PULSE
--- NOTE | 2016-09-29 | NUR ---
STATUS IS HERE AND REPORTS PT HAS A FEW CANCER SPOTS TO HIS LOWER LUNG AND HIS THROAT AREA. SHE S WONDERING IF THIS IS WHAT IS CAUSING THE PAIN. PT HAS SEVERE ALZHEIMER. THEY ARE NOT TREATING THE CANCER SPOTS AT THIS TIME
[2016-09-29 00:20] LABS: BASOPHILS # (AUTO) 0.1 T/MM3 (0-0.2); BASOPHILS % (AUTO) 1.1 % (0-2); EOSINOPHILS # (AUTO) 0.7 T/MM3 (0-0.5); EOSINOPHILS % (AUTO) 10.3 % (0-4); HCT - HEMATOCRIT 33.7 % (41-53); HGB - HEMOGLOBIN 11.2 GM/DL (13.5-17.5); IMMATURE GRANULOCYTE # (AUTO) 0.01 T/MM3 (0.00-0.03); IMMATURE GRANULOCYTE % (AUTO) 0.1 % (0.0-0.5); LYMPHOCYTES # (AUTO) 1.2 T/MM3 (1-4.8); LYMPHOCYTES % (AUTO) 16.9 % (23-45); MEAN CORPUSCULAR HGB 31.5 UUG (26-34); MEAN CORPUSCULAR HGB CONC(MCHC 33.2 GM/DL (31-37); MEAN CORPUSCULAR VOLUME 94.7 UM3 (80-100); MEAN PLATELET VOLUME 9.1 UM3 (9.4-12.4); MONOCYTES # (AUTO) 0.7 T/MM3 (0-0.8); NEUTROPHILS #(AUTO)-ABSOLUTE 4.4 T/MM3 (1.8-7.7); NEUTROPHILS % (AUTO) 61.6 % (33-66); RED BLOOD COUNT 3.56 M/MM3 (4.50-5.90); WBC - WHITE BLOOD COUNT 7.1 T/MM3 (4.5-11.0)
[2016-09-29 00:28] LABS: ALBUMIN 3.5 G/DL (3.5-5.0); ALBUMIN/GLOBULIN RATIO 1.3 RATIO (1.1-2.2); ALKALINE PHOSPHATASE 87 U/L (38-126); ALT (SGPT) 36 U/L (21-72); ANION GAP 9 MEQ/L (5-15); AST (SGOT) 22 U/L (17-59); BUN/CREATININE RATIO 25 RATIO (6-26); CALCIUM 8.8 MG/DL (8.4-10.2); CHLORIDE 109 MEQ/L (98-107); CO2 - CARBON DIOXIDE 25 MEQ/L (22-30); CREATININE 0.8 MG/DL (0.8-1.5); GLOMERULAR FILTRATION RATE 92; GLUCOSE 103 MG/DL (75-110); POTASSIUM 4.2 MEQ/L (3.6-5); SODIUM 143 MEQ/L (134-144); TOTAL PROTEIN 6.3 G/DL (6.3-8.2)
[2016-09-29] MEDS ORDERED: AZIT500T2 PO (00:59)
--- NOTE | 2016-09-29 00:59 | ERPDOC ---
Departure Disposition Decision Date: September 29, 2016 Disposition Decision Time: 00:57 Disposition: 01 DISCHARGED HOME, SELF-CARE Impression Impression Impression: Primary Impression: Chest pain Chest pain type: unspecified Qualified Codes: R07.9 - Chest pain, unspecified Severity: Moderate Condition: Improved Seen By: Physician only Referrals: SILVESTRE THOMAS MD (Family) 1 Day Patient Instructions: Chest Pain (ED) Problems/Meds/Labs Reviewed?: Yes Medications reviewed and manag: Yes Follow up care ordered?: Yes Mental Status: Alert, Forgetful, Confused Scripts Azithromycin (Zithromax Tri-Bin) 500 Mg Tablet 500 MG PO DIRECTED, #1 PACK 0 Refills 2 TABLETS FOR 1 DAY THEN, 1 TABLET FOR 4 DAYS Prov: FLORENCIA JESSICA DO 09/29/16 HPI - General Medical General Chief Complaint: Chest Pain Stated Complaint: CHEST PAIN Time Seen by Provider: 23:23 Source: patient, family, EMS Exam Limitations: no limitations HPI - General Medical Initial Comments 86-year-old male who is a do not resuscitate presents to the emergency department with a chief complaint of chest discomfort. Patient does have a history of Alzheimer's dementia and is at baseline mental status. Patient's arrives and is at bedside as well. Patient reports that earlier today he experienced some generalized chest discomfort which has since resolved. Patient did take 325 mg of aspirin today prior to arrival to the emergency department. EMS was summoned and did give a single sublingual nitroglycerin tablet. Patient denies any current pain or discomfort. Patient is unsure exactly when his discomfort began. Patient is currently battling lung cancer. 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 Patient is currently pain-free. Patient's does note that the patient has had similar symptoms in the past secondary to his lung cancer. Occurred At: other ([place]) Onset: other (Resolved.) Allergies: Coded Allergies: iodine (Verified Allergy, Unknown, 06/15/16) Past History Patient Surgical History B/L Cataracts Bilateral Hernia repair x2 Pacemaker placement Past Medical History Metabolic: hypertension Male: BPH Psychological: dementia, depression Surgical History General: hernia Cardiac: pacemaker Family History Family PMH: FOUND: diabetes Vaccines Hx Influenza Vaccination: Yes (FEB 2016) Hx Pneumococcal Vaccination: Yes (feb 2015) Social History Smoking Status: Never smoker Substance Use Type: does not use Alcohol Intake: none Marital Status: Sexuality: female partner Housing: retirement Current Occupational Status: retired Advance Directives: Yes DNR Review of Systems Constitutional Constitutional: DENIES: chills, fever Eyes General: DENIES: erythema, exudate Lids/Accessories: DENIES: erythema, swelling Vision: DENIES: acuity, blurring ENMT Ears: DENIES: drainage, erythema Hearing: DENIES: hearing loss Balance: DENIES: ataxia, falling to one side Sinuses: DENIES: congestion, pain Nose: DENIES: nosebleeds, pain Mouth/Throat: DENIES: painful swallowing, sore throat Teeth: DENIES: pain Jaw: DENIES: pain Cardiovascular Cardiac: chest pain (Resolved. ), DENIES: dyspnea on exertion Rhythm/Rate: DENIES: irregular beat, palpitations Vascular: DENIES: pedal edema, unilateral swelling Pulmonary Respiratory: DENIES: cough, dyspnea, pleuritic chest pain, sputum GI Upper Abdomen: DENIES: nausea, pain, vomiting Lower Abdomen: DENIES: diarrhea, pain General: DENIES: dysuria, frequency, urgency Musculoskeletal General: DENIES: joint pain, pain, tenderness Integumentary Skin: DENIES: itching, rash Neurological General: DENIES: change in strength, headache, numbness, weakness Psychiatric Psychiatric: DENIES: emotional instability, suicidal ideation/attempt Endocrine Endocrine: DENIES: polydipsia, polyphagia Hematologic/Lymphatic Hematologic/Lymphatic: DENIES: frequent nosebleeds, lymphadenopathy Allergic/Immunological Allergic/Immunoligical: DENIES: allergic reactions, hives Physical Exam General General Nourishment: well nourished, well developed, appears stated age, no acute distress, adult General Body Habitus: well groomed Vitals and Pain First Documented Vital Signs Date Time Temp Pulse Resp B/P Pulse Ox O2 Delivery O2 Flow Rate FiO2 09/28/16 23:12 97.3 62 18 126/74 94 Room Air Weight: Kilograms: 83.000 Height (feet): 5 Height (inches): 10.00 Triage Pain Scale: RN VS reviewed by Provider: Yes Normal Exams: Head: Normocephalic w/o trauma Eyes: Pupils are PERRLA w/ EOMI, No scleral icterus, irritation, or foreign bodies noted ENMT: No facial trauma, nasal exudates, pharyngeal erythema, or exudates are noted Dental: No fractured, loose, or missing teeth noted Neck: Full range of motion, without adenopathy, JVD, bruits or thyromegaly Chest/Resp: Clear all connelly, with good airflow, and symmetry bilaterally CV: Regular rate and rhythm, without murmur or gallop, Pulses 2+ all extremities, capillary refill, <2 seconds all ext., no pedal edema noted Abdomen: Bowel sounds positive, soft, non-tender, non-distended, no hepatosplenomegaly, masses or bruits noted Lymphatic: No lymphadenopathy, or lymphedema noted Musculoskeletal: No tenderness, or deformity noted, good range of motion, all extremities Integumentary: No rashes, hives, or bruising noted, hair and nails, without abnormality Neurologic: Patient is alert Psychiatric: Patient exhibits, appropriate attention, emotion and affect Neurologic (brief) Comments Alert and oriented x 1-2 at baseline mental status per . Differential Diagnoses Considering: Acute IN, Metabolic, Pneumonia, Other (Lung CA) Progress Results/Orders Orders Procedure Category Date Status Time Cbc W/Auto LAB 09/28/16 Complete Diff-Reflex Manual Cmp - Comprehensive LAB 09/28/16 Complete Metabolic Troponin I W LAB 09/28/16 Complete Hemolysis Index EKG EKG 09/28/16 Logged Chest 1 View RAD 09/28/16 Taken 23:23 Azithromycin PHA 09/29/16 Complete (Zithromax 500 Mg) 01:15 Lab Results Laboratory Tests Test 09/28/16 23:54 White Blood Count 7.1T/MM3 Red Blood Count 3.56M/MM3 Hemoglobin 11.2GM/DL Hematocrit 33.7% Mean Corpuscular Volume 94.7UM3 Mean Corpuscular Hemoglobin 31.5UUG Mean Corpuscular Hemoglobin Concent 33.2GM/DL RDW Standard Deviation 42.1FL Platelet Count 221T/MM3 Mean Platelet Volume 9.1UM3 Immature Granulocyte % (Auto) 0.1% Neutrophils (%) (Auto) 61.6% Lymphocytes (%) (Auto) 16.9% Monocytes (%) (Auto) 10.0% Eosinophils (%) (Auto) 10.3% Basophils (%) (Auto) 1.1% Absolute Immature Granulocyte (auto 0.01T/MM3 Absolute Neutrophils (auto) 4.4T/MM3 Absolute Lymphocytes (auto) 1.2T/MM3 Absolute Monocytes (auto) 0.7T/MM3 Absolute Eosinophils (auto) 0.7T/MM3 Absolute Basophils (auto) 0.1T/MM3 Turbidity < 20 Sodium Level 143MEQ/L Potassium Level 4.2MEQ/L Chloride Level 109MEQ/L Carbon Dioxide Level 25MEQ/L Anion Gap 9MEQ/L Blood Urea Nitrogen 20.0MG/DL Creatinine 0.8MG/DL Glomerular Filtration Rate Calc 92 BUN/Creatinine Ratio 25RATIO Glucose Level 103MG/DL Calculated Osmolality 278MOSM/KG Calcium Level 8.8MG/DL Total Bilirubin 0.40MG/DL Icterus Index < 2 Aspartate Amino Transf (AST/SGOT) 22U/L Alanine Aminotransferase (ALT/SGPT) 36U/L Alkaline Phosphatase 87U/L Troponin I < 0.012ng/ml Total Protein 6.3G/DL Albumin 3.5G/DL Globulin 2.8G/DL Albumin/Globulin Ratio 1.3RATIO Chemistry Specimen Hemolysis < 15 Medications Current ED Medications Azithromycin (ZITHROMAX 500 mg) 500 mg O ONCE PO ; Start 09/29/16 at 01:15; Stop 09/29/16 at 01:16; Status DC Progress Progress Labs / imaging were discussed in detail with the patient and his who is his durable power of superintendent greens for medical decision-making. Patient is recommended to undergo admission to the hospital for further evaluation and treatment which is declined by the patient's . Patient's states the patient is a do not resuscitate and that she would prefer to take the patient home and have him follow-up with his autoclave operator as an outpatient. She also declined a CT of the chest. Patient has a known history of lung cancer and she believes his symptoms are typical of his lung cancer. Patient and his are counseled in detail that leaving the emergency department can result in and/or permanent disability. There is no way to rule out cardiac etiology of the patient's symptoms. She verbalizes agreement and understanding but still wishes to take the patient home. She is aware of the risks. Patient has had 325 mg of aspirin by mouth times one today. Patient is provided with a prescription for a Z-Bin in case there is an infectious etiology to either of the lung nodules. is in agreement with the current plan of management. Patient is discharged home in accordance with her wishes. Patient is to follow up as instructed. He is to return to the emergency Department if his condition worsens or changes in any manner. Patient is afebrile. Has no leukocytosis. Does not currently have a productive cough so this makes pneumonia unlikely. EKG EKG : Rate: 60-100 Rhythm: other (Atrial Paced Rhythm. ) QRS: RBBB Intervals: normal ST/T: normal Interpreted by: signing physician Xray Xray : Xray: CXR Portable Interpretation: Abnormal, Faxed Report (abnormal density in the left lower lung field may represent a lung CVA. 2 cm spiculated nodule in right lower lung. Patient with known history of lung CA.) FLORENCIA JESSICA DO September 29, 2016 00:59 FLORENCIA JESSICA DO September 29, 2016 00:59
--- NOTE | 2016-09-29 01:10 | NUR ---
CXR PORTABLE CXR COMPLETED IN ROOM.
[2016-09-29] MEDS ORDERED: AZITHROMYCIN 500 MG TABLET PO ONE (01:15)
--- NOTE | 2016-09-29 01:20 | NUR ---
[facility] CALLED REPORT TO [facility]. WILL BRING HIM BACK AND SHE WILL NEED ASSISTANCE GETTING HIM INTO THEIR FACILITY
[2016-09-29 01:24] VITALS: BP 127/71; PULSE 62; RESP 18; TEMP 97.3; O2SAT 94
--- NOTE | 2016-09-29 01:24 | NUR ---
DEPART IS GIVEN DISMISSAL INSTRUCTIONS WITH VERBAL UNDERSTANDING. WILL TAKE PT BACK TO [facility]. PT LEAVES VIA W/C AND ASSISTED IN PRIVATE VEHICLE
--- NOTE | 2016-09-29 11:50 | DI ---
Indication: ITS.REASON: pain CHEST 1 VIEW: Comparison: 05/04/2016 Technique: Portable AP upright chest Findings: Patient showed heart size within acceptable limits with continued increased markings in the bases which probably represent chronic interstitial fibrotic changes as a do not seem to change appreciably since prior studies. A potential finding of some significance however is a 1.5 cm area of density in the right infrahilar region which is evidently the area biopsied on the prior exam. It continues to show spiculated margins. Central vascularity and mediastinum are stable. No acute new bony abnormality appreciated. Impression: 1. Stable chronic interstitial prominence in the bases with a normal-sized heart. Patient still shows permanent pacemaker in position without suggestion of cardiac decompensation. 2. Spiculated mass in the central portion of the right chest which is evidently previously biopsied is still concerning in its appearance. It however has not increased significantly in size since the examination. .
== END 2016-09-29 01:24 | disposition home or self-care (01) ==
LOC: ED 23:12
DX: R07.89 Other chest pain (principal); I10 Essential (primary) hypertension; C34.91 Malignant neoplasm of unspecified part of right bronchus or lung; Z66 Do not resuscitate
CPT/HCPCS: 36415; 80053; 84484; 85025; 93005